=== PATIENT | male | born 1995 | race Asian ===

== ENCOUNTER 2016-09-29 22:00 | Emergency (ER) | payer OTHER ==
[~2016-09-29] VITALS: Ht 170.2 cm; Wt 71.4 kg
[2016-09-29 22:34] VITALS: BP 123/62
== END 2016-09-30 01:04 | disposition home or self-care (01) ==
LOC: EME 22:00
DX: S01.81XA Laceration without foreign body of other part of head, initial encounter (principal); W22.09XA Striking against other stationary object, initial encounter; Y93.11 Activity, swimming; Y92.34 Swimming pool (public) as the place of occurrence of the external cause; Z23 Encounter for immunization
CPT/HCPCS: 99281; 99283